=== PATIENT | female | born 2000 | race American Indian/Alaskan Native ===

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

== ENCOUNTER 2022-08-03 12:35 | Emergency (ER) | payer SELFPAY ==
[2022-08-03 14:12] VITALS: BP 112/68
--- NOTE | 2022-08-03 14:42 | Emergency Department Report ---
ED General Adult HPI - General Chief complaint: Upper Respiratory Infection Stated complaint: SINUSES, NASAL CONGESTION,HEADACHE Time Seen by Provider: 08/03/22 14:30 Source: patient Mode of arrival: Ambulatory Limitations: No Limitations - History of Present Illness Initial comments: 22-year-old female no significant past medical history reports to ER work nasal congestion and nasal drainage for about 5 days. Patient reports taking [id number] medication with slight relief but still has pressure within her face along with tenderness. Patient denies cough. No chest discomfort no shortness of breath reported. Patient does endorse slight headache that is relieved at times with Tylenol. No other acute signs or symptoms reported. Severity scale (0 -10): 0 - Related Data Previous Rx's Medication Instructions Recorded Last Taken Type Acetaminophen/Codeine [Tylenol #3] 1 tab PO QHS PRN #10 tablet 06/16/15 Unknown Rx Cyclobenzaprine [Flexeril] 10 mg PO QHS PRN #10 tablet 02/13/19 Unknown Rx Ibuprofen [Motrin 600 MG tab] 600 mg PO Q8H PRN #20 tablet 11/01/19 Unknown Rx Ondansetron [Zofran Odt] 4 mg PO Q8HR PRN #15 tab.rapdis 11/01/19 Unknown Rx Sulfamethoxazole/Trimethoprim 1 each PO BID #10 tablet 11/01/19 Unknown Rx [Bactrim DS TAB] metroNIDAZOLE [Flagyl] 500 mg PO Q12HR #14 tablet 11/01/19 Unknown Rx Azithromycin 1,000 mg PO ONCE 1 Days #2 tablet 04/04/20 Unknown Rx Ondansetron [Zofran Odt] 4 mg PO Q8HR PRN #12 tab.rapdis 04/04/20 Unknown Rx metroNIDAZOLE [Flagyl] 500 mg PO BID 7 Days #14 tab 04/04/20 Unknown Rx Amoxicillin/K Clav Tab [Augmentin 1 tab PO Q12HR 5 Days #10 tab 08/03/22 Unknown Rx 875 mg] Allergies Allergy/AdvReac Type Severity Reaction Status Date / Time No Known Allergies Allergy Unverified 06/16/15 10:33 ED Review of Systems ROS: Stated complaint: SINUSES, NASAL CONGESTION,HEADACHE Other details as noted in HPI Comment: All other systems reviewed and negative ENT: congestion ED Past Medical Hx - Past Medical History Previous Medical History?: No Hx Asthma: Yes - Surgical History Additional Surgical History: hernia repair - Social History Smoking Status: Never Smoker Substance Use Type: None - Medications Home Medications: Home Medications Medication Instructions Recorded Confirmed Last Taken Type Acetaminophen/Codeine [Tylenol #3] 1 tab PO QHS PRN #10 tablet 06/16/15 Unknown Rx Cyclobenzaprine [Flexeril] 10 mg PO QHS PRN #10 tablet 02/13/19 Unknown Rx Ibuprofen [Motrin 600 MG tab] 600 mg PO Q8H PRN #20 tablet 11/01/19 Unknown Rx Ondansetron [Zofran Odt] 4 mg PO Q8HR PRN #15 tab.rapdis 11/01/19 Unknown Rx Sulfamethoxazole/Trimethoprim 1 each PO BID #10 tablet 11/01/19 Unknown Rx [Bactrim DS TAB] metroNIDAZOLE [Flagyl] 500 mg PO Q12HR #14 tablet 11/01/19 Unknown Rx Azithromycin 1,000 mg PO ONCE 1 Days #2 tablet 04/04/20 Unknown Rx Ondansetron [Zofran Odt] 4 mg PO Q8HR PRN #12 tab.rapdis 04/04/20 Unknown Rx metroNIDAZOLE [Flagyl] 500 mg PO BID 7 Days #14 tab 04/04/20 Unknown Rx Amoxicillin/K Clav Tab [Augmentin 1 tab PO Q12HR 5 Days #10 tab 08/03/22 Unknown Rx 875 mg] ED Physical Exam - General Limitations: No Limitations General appearance: alert, in no apparent distress - Head Head exam: Present: atraumatic, normocephalic - Eye Eye exam: Present: normal appearance - ENT ENT exam: Present: mucous membranes moist, other (Frontal and maxillary sinus tenderness with pressure noted. Nasal congestion noted) - Neck Neck exam: Present: normal inspection - Respiratory Respiratory exam: Present: normal lung sounds bilaterally. Absent: respiratory distress - Cardiovascular Cardiovascular Exam: Present: regular rate, normal rhythm. Absent: systolic murmur, diastolic murmur, rubs, gallop - GI/Abdominal GI/Abdominal exam: Present: soft, normal bowel sounds - Extremities Exam Extremities exam: Present: normal inspection - Back Exam Back exam: Present: normal inspection - Neurological Exam Neurological exam: Present: alert, oriented X3 - Psychiatric Psychiatric exam: Present: normal affect, normal mood - Skin Skin exam: Present: warm, dry, intact, normal color. Absent: rash ED Course Vital Signs 08/03/22 14:09 Temperature 98.6 F Pulse Rate 65 Respiratory 16 Rate Blood Pressure 112/68 [Right] O2 Sat by Pulse 100 Oximetry ED Medical Decision Making - Medical Decision Making 22-year-old female no significant past medical history reports to ER work nasal congestion and nasal drainage for about 5 days. Patient reports taking [id number] medication with slight relief but still has pressure within her face along with tenderness. Patient denies cough. No chest discomfort no shortness of breath reported. Patient does endorse slight headache that is relieved at times with Tylenol. No other acute signs or symptoms reported. On physical exam there is frontal and maxillary sinus tenderness with pressure noted. Nasal congestion present Patient diagnosed with acute sinusitis. Patient informed she will be sent home with Augmentin for 5 days twice daily. Patient agrees with plan of care and verbalized understanding. Patient safe for discharge home. Patient informed symptoms are to get worse to report to the ER. Vital Signs 08/03/22 14:09 Temperature 98.6 F Pulse Rate 65 Respiratory 16 Rate Blood Pressure 112/68 [Right] O2 Sat by Pulse 100 Oximetry Critical care attestation.: If time is entered above; I have spent that time in minutes in the direct care of this critically ill patient, excluding procedure time. ED Disposition Clinical Impression: Acute sinusitis Qualifiers: Sinusitis location: pansinusitis Recurrence: non-recurrent Qualified Code(s): J01.40 - Acute pansinusitis, unspecified Disposition: 01 HOME / SELF CARE / HOMELESS Is pt being admited?: No Condition: Stable Instructions: Sinusitis, Adult, [id number] Prescriptions: Amoxicillin/K Clav Tab [Augmentin 875 mg] 1 tab PO Q12HR 5 Days #10 tab Forms: Work/School Release Form(ED)
== END 2022-08-03 16:00 | disposition home or self-care (01) ==
LOC: ED 12:35
DX: J01.90 Acute sinusitis, unspecified (principal); J45.909 Unspecified asthma, uncomplicated; Z79.899 Other long term (current) drug therapy
CPT/HCPCS: 99281; 99282